=== PATIENT | female | born 1930 | race Caucasian/White ===

== ENCOUNTER 2016-08-05 11:19 | Outpatient (CLI) | payer MEDICARE, OTHER ==
[~2016-08-05 11:19] MED LIST: ABILIFY10 MG; AMLO5TAB PO; AMLOD OR; AMLODIPINE/BENA1 CAP PO; BRILINTA90 M1 PO; FOLIC ACID 1MG T1 MG PO; GLUCOSAMINE & C1 CA1 PO; HYDROCODONE-APA1 TA1 PO; ICAPS MV1 TA1 PO; LIPITOR10 MG PO; LIPITOR40 MG PO; LOPRESSOR 25MG.25 MG PO; LORTAB 5/500 501 TAB PO; MEDICINE S1.75 GM/30 PO; PATANOL 5 ML5 ML OP; SINGULAIR10 MG PO; SULFAMETHOXAZOL1 TA6 PO; TOPCARE STOOL100 MG PO; TRAMADOL 50MG T50 MG PO; WARFARIN 3MG TAB3 MG OR; WARFARIN 3MG TAB3 MG PO; WARFARIN SODIU2.5 MG OR; WARFARIN SODIUM1 MG PO; WARFARIN SODIUM4 MG PO; ZYRTEC 10MG TAB10 MG PO; [UNRECOGNIZED DRUG - OTHER] OR
[2016-09-11] MEDS ORDERED: WARFARIN 3MG TAB3 MG PO (07:57)
[2016-09-11] MEDS ORDERED: WARFARIN SODIUM3 MG PO (07:58)
[2016-09-11] MEDS ORDERED: AMLO5TAB PO (08:28)
[2016-09-11] MEDS ORDERED: PREDNISONE 20MG20 MG PO (09:21)
== END 2016-08-05 16:22 ==
LOC: ACC 11:19
DX: I48.91 Unspecified atrial fibrillation (principal); Z79.01 Long term (current) use of anticoagulants; Z51.81 Encounter for therapeutic drug level monitoring
CPT/HCPCS: G0463

== ENCOUNTER 2017-04-23 11:33 | Outpatient (CLI) | payer MEDICARE, OTHER ==
[~2017-04-23 11:33] MED LIST changes: +AMLODIPINE10 M2 PO; +CEFDINIR 300MG300 MG PO; +NORCO 325 MG-51 TAB PO; +PREDNISONE 10MG10 MG PO; +PREDNISONE 20MG20 MG PO; +RISPERDAL0.5 MG PO; +WARFARIN SODIUM3 MG PO; +[UNRECOGNIZED DRUG - OTHER] PO
== END 2017-04-23 15:48 ==
LOC: ACC 11:33
DX: I48.91 Unspecified atrial fibrillation (principal); Z79.01 Long term (current) use of anticoagulants; Z51.81 Encounter for therapeutic drug level monitoring
CPT/HCPCS: G0463

== ENCOUNTER → 2017-05-14 | Outpatient (CLI) | payer MEDICARE, OTHER | LOC: ACC 11:21 | DX: I48.91 Unspecified atrial fibrillation (principal); Z79.01 Long term (current) use of anticoagulants; Z51.81 Encounter for therapeutic drug level monitoring | CPT/HCPCS: G0463 ==

== ENCOUNTER 2017-05-19 11:36 | Outpatient (CLI) | payer MEDICARE, OTHER | END 2017-05-19 14:59 | LOC: ACC 11:36 | DX: I48.91 Unspecified atrial fibrillation (principal); Z79.01 Long term (current) use of anticoagulants; Z51.81 Encounter for therapeutic drug level monitoring | CPT/HCPCS: G0463 ==

== ENCOUNTER 2017-06-02 11:15 | Outpatient (CLI) | payer MEDICARE, OTHER | END 2017-06-02 14:59 | LOC: ACC 11:15 | DX: I48.91 Unspecified atrial fibrillation (principal); Z79.01 Long term (current) use of anticoagulants; Z51.81 Encounter for therapeutic drug level monitoring | CPT/HCPCS: G0463 ==